=== PATIENT | male | born 1985 | race Hispanic/Latino ===

== ENCOUNTER 2022-08-07 17:42 | Inpatient (IN) | payer BC ==
[~2022-08-07] VITALS: Ht 180.3 cm; Wt 90.7 kg
[~2022-08-07 17:42] MED LIST: AUGMENTIN 500-1 EACH PO; CEFTIN500 MG PO; DITROPAN XL5 MG PO; GLIMEPIRIDE2 MG PO; GLIMEPIRIDE4 MG PO; GLYBURIDE5 MG PO; KETOROLAC TROME10 MG PO; METFORMIN HCL500 MG PO; METRONIDAZOLE500 MG PO; NORCO 7.5-3251 EACH PO; OXYBUTYNIN CHLOR5 MG PO; TYLENOL # 31 EA PO; VIMOVO PO
[2022-08-07] MEDS ORDERED: SODIUM CHLORIDE 0.9% 1000ML 1,000 ML ONE (18:19)
[2022-08-07] MEDS ORDERED: ACETAMINOPHEN 325 MG TAB ONE (18:19)
[2022-08-07] MEDS ORDERED: ONDANSETRON HCL INJ 2MG/ML 2ML 2 MG/ML VIAL ONE (18:19)
[2022-08-07] MEDS ORDERED: FAMOTIDINE 20 MG/2 ML VIAL IV ONE (18:20)
[2022-08-07] MEDS ORDERED: KETOROLAC TROMETHAMINE 30 MG/ML VIAL ONE (18:20)
[2022-08-07] MEDS ORDERED: FAMOTIDINE 20 MG/2 ML VIAL IV STA (18:26)
[2022-08-07] MEDS ORDERED: ONDANSETRON HCL INJ 2MG/ML 2ML 2 MG/ML VIAL IV STA ×2 (18:26→20:20)
[2022-08-07] MEDS ORDERED: KETOROLAC TROMETHAMINE 30 MG/ML VIAL IV STA (18:26)
[2022-08-07] MEDS ORDERED: SODIUM CHLORIDE 0.9% 1000ML 1,000 ML IV ONE (18:30)
[2022-08-07] MEDS ORDERED: ACETAMINOPHEN 325 MG TAB PO ONE (18:30)
[2022-08-07] MEDS ORDERED: SODIUM CHLORIDE 0.9% 1000ML 1,000 ML IV SCH (19:15)
[2022-08-07] MEDS ORDERED: LIDOCAINE HCL 1% LOCAL INJ 20 ML VIAL ONE (20:15)
[2022-08-07] MEDS ORDERED: CEFTRIAXONE 2 GM in SODIUM CHLORIDE 0.9% 100 ML IV ONE (20:30)
[2022-08-07] MEDS ORDERED: Morphine 4mg INJECTION 4 MG/ML INJ IV ONE (20:30)
[2022-08-07] MEDS ORDERED: CEFTRIAXONE 1 GM VIAL ONE (20:35)
[2022-08-07] MEDS ORDERED: SODIUM CHLORIDE 0.9% 100 ML ONE (20:35)
[2022-08-07] MEDS ORDERED: Morphine 4mg INJECTION 4 MG/ML INJ ONE (20:38)
[2022-08-07] MEDS ORDERED: Vancomycin IV 1 GM in SODIUM CHLORIDE 0.9% 250ML 250 ML IV ONE (22:45)
[2022-08-07] MEDS ORDERED: DEXTROSE 50% SYRINGE 50 ML IV PRN (23:00)
[2022-08-08] VITALS (10 sets, daily range): BP systolic 120–131; BP diastolic 74–83
[2022-08-08] MEDS: SODIUM CHLORIDE 0.9% 1000ML 1,000 ML IV SCH ×3 (01:59→16:49)
[2022-08-08] MEDS ORDERED: Vancomycin IV 1 GM in SODIUM CHLORIDE 0.9% 250ML 250 ML IV ONE (02:15)
[2022-08-08] MEDS ORDERED: TRULICITY0.75 MG/0. (02:38)
[2022-08-08] MEDS: ONDANSETRON HCL INJ 2MG/ML 2ML 2 MG/ML VIAL IV PRN ×3 (02:51→21:31)
[2022-08-08] MEDS: Morphine 4mg INJECTION 4 MG/ML INJ IV PRN ×3 (02:51→21:31)
[2022-08-08 03:17] LABS: CLARITY,URINE CLEAR (CLEAR); COLOR,URINE YELLOW (YELLOW); KETONES,URINE TRACE (NEGATIVE); LEUKOCYTE ESTERASE ,URINE NEGATIVE (NEGATIVE); NITRITE,URINE NEGATIVE (NEGATIVE); PROTEIN,URINE DIPSTICK >=300 (NEGATIVE); URINE UROBILINOGEN 0.2 mg/dL (0.2 - 1)
[2022-08-08 03:19] LABS: AMORPHOUS SEDIMENT,URINE FEW (FEW); BACTERIA,URINE FEW /HPF; EPITHELIAL CELLS,URINE RARE /LPF; RBC,URINE 0-5 /HPF (0-5); WBC,URINE (MAN) 0-5 /HPF (0-5)
[2022-08-08] MEDS: INSULIN LISPRO 100 UNIT/1 ML 3ML VIAL SQ SCH ×4 (07:30→21:00)
[2022-08-08] MEDS: CEFTRIAXONE 2 GM in SODIUM CHLORIDE 0.9% 100 ML IV SCH ×2 (08:15→21:30)
[2022-08-08] MEDS ORDERED: CEFTRIAXONE 2 GM in SODIUM CHLORIDE 0.9% 100 ML IV SCH (09:00)
[2022-08-08 10:02] LABS: BASOPHILS # (AUTO) 0.1 (0.0-0.1); BASOPHILS % 0.8 % (0.0-1.0); EOSINOPHILS # (AUTO) 0.2 (0.0-0.4); EOSINOPHILS % 3.5 % (0.0-6.0); HEMATOCRIT 35.1 % (38.2-49.6); HEMOGLOBIN 11.7 g/dL (14.0-18.0); LYMPHOCYTES # (AUTO) 1.8 (1.0-3.2); LYMPHOCYTES % 30.3 % (18.0-39.1); MEAN CORPUSCULAR HEMOGLOBIN 28.6 pg (28-32); MEAN CORPUSCULAR HGB CONC 33.3 g/dL (31-35); MEAN CORPUSCULAR VOLUME 85.8 fL (81-99); MONOCYTES # (AUTO) 0.8 (0.2-0.8); MONOCYTES % 12.4 % (4.4-11.3); NEUTROPHILS # (AUTO) 3.2 (2.1-6.9); NEUTROPHILS % 52.7 % (38.7-80.0); PLATELET COUNT 247 x10e3/uL (140-360); RED BLOOD COUNT 4.09 x10e6/uL (4.3-5.7); RED CELL DISTRIBUTION WIDTH 12.2 % (11.7-14.4)
[2022-08-08 10:44] LABS: ALBUMIN 3.2 g/dL (3.5-5.0); ALBUMIN/GLOBULIN RATIO 0.8 (0.8-2.0); ANION GAP 9.7 mmol/L (8-16); CALCIUM 8.3 mg/dL (8.4-10.2); CREATININE, SERUM 1.02 mg/dL (0.72-1.25); POTASSIUM 3.7 mmol/L (3.5-5.1)
[2022-08-08] MEDS ORDERED: DOCUSATE SODIUM 100 MG CAP PO PRN (15:00)
[2022-08-08 15:09] LABS: CHOL/HDL RATIO 5.7 (3.9-4.7)
[2022-08-08] MEDS ORDERED: Vancomycin IV 1 GM in SODIUM CHLORIDE 0.9% 250ML 250 ML IV SCH (17:45)
[2022-08-08] MEDS ORDERED: ACYCLOVIR SODIUM INJ 1,000 MG in SODIUM CHLORIDE 0.9% 250ML 250 ML IV SCH (18:00)
[2022-08-08] MEDS ORDERED: GADOBENATE DIMEGLUMINE 1 ML IV ONE (19:43)
[2022-08-08 19:54] LABS: INR 1.03; PROTHROMBIN TIME 13.7 seconds (11.9-14.5)
[2022-08-09] VITALS (9 sets, daily range): BP systolic 112–122; BP diastolic 70–82
[2022-08-09] MEDS: SODIUM CHLORIDE 0.9% 1000ML 1,000 ML IV SCH ×2 (04:37→15:25)
[2022-08-09] MEDS: INSULIN LISPRO 100 UNIT/1 ML 3ML VIAL SQ SCH ×4 (07:30→20:52)
[2022-08-09 07:43] LABS: BASOPHILS % 0.5 % (0.0-1.0); EOSINOPHILS # (AUTO) 0.2 (0.0-0.4); EOSINOPHILS % 2.7 % (0.0-6.0); HEMATOCRIT 35.5 % (38.2-49.6); HEMOGLOBIN 11.9 g/dL (14.0-18.0); LYMPHOCYTES # (AUTO) 2.7 (1.0-3.2); LYMPHOCYTES % 33.8 % (18.0-39.1); MEAN CORPUSCULAR HEMOGLOBIN 28.3 pg (28-32); MEAN CORPUSCULAR HGB CONC 33.5 g/dL (31-35); MEAN CORPUSCULAR VOLUME 84.3 fL (81-99); MONOCYTES # (AUTO) 0.7 (0.2-0.8); MONOCYTES % 9.4 % (4.4-11.3); NEUTROPHILS # (AUTO) 4.2 (2.1-6.9); NEUTROPHILS % 53.3 % (38.7-80.0); PLATELET COUNT 266 x10e3/uL (140-360); RED BLOOD COUNT 4.21 x10e6/uL (4.3-5.7)
[2022-08-09 08:11] LABS: ANION GAP 14.6 mmol/L (8-16); CALCIUM 8.7 mg/dL (8.4-10.2); CREATININE, SERUM 0.86 mg/dL (0.72-1.25); POTASSIUM 3.6 mmol/L (3.5-5.1)
[2022-08-09] MEDS: MULTIVITAMINS/MINERALS TAB PO SCH (08:14)
[2022-08-09] MEDS ORDERED: LIDOCAINE 1% 10 ML MULTIDOSE VIAL IJ ONE (08:14)
[2022-08-09] MEDS: CEFTRIAXONE 2 GM in SODIUM CHLORIDE 0.9% 100 ML IV SCH ×2 (08:14→20:44)
[2022-08-09] MEDS: Morphine 4mg INJECTION 4 MG/ML INJ IV PRN ×3 (08:15→20:45)
[2022-08-09] MEDS: ONDANSETRON HCL INJ 2MG/ML 2ML 2 MG/ML VIAL IV PRN ×3 (08:15→20:44)
[2022-08-09 09:13] LABS: HIV 1&2 AB SCREEN ***REACTIVE*** (NONREACTIVE)
[2022-08-09 12:45] LABS: APPEARANCE,CSF CLEAR (CLEAR); COLOR,CSF COLORLESS (COLORLESS); TUBE NUMBER 3
[2022-08-09 13:27] LABS: WHITE BLOOD CELL,CSF 596 cells/uL (0-5)
[2022-08-09 14:03] LABS: LYMPHOCYTES,CSF 77 % (40-80); MONOCYTES,CSF 21 %; NEUTROPHILS,CSF 2 % (0-6)
[2022-08-09 16:19] LABS: EOSINOPHILS % (MANUAL) 1 % (0-7); LYMPHOCYTES % (MANUAL) 32 % (19-48); MONOCYTES % (MANUAL) 11 % (3.4-9.0); NEUTROPHILS % (MANUAL) 55 % (40-74)
[2022-08-09 16:20] LABS: PLATELET ESTIMATE ADEQUATE; PLATELET MORPHOLOGY COMMENT NORMAL; RBC MORPHOLOGY COMMENT NORMAL
[2022-08-10] VITALS (8 sets, daily range): BP systolic 118–125; BP diastolic 70–89
[2022-08-10] MEDS: SODIUM CHLORIDE 0.9% 1000ML 1,000 ML IV SCH ×3 (04:08→21:59)
[2022-08-10 06:37] LABS: BASOPHILS # (AUTO) 0.1 (0.0-0.1); BASOPHILS % 0.7 % (0.0-1.0); EOSINOPHILS # (AUTO) 0.3 (0.0-0.4); EOSINOPHILS % 3.6 % (0.0-6.0); HEMATOCRIT 34.7 % (38.2-49.6); HEMOGLOBIN 11.9 g/dL (14.0-18.0); LYMPHOCYTES # (AUTO) 2.9 (1.0-3.2); LYMPHOCYTES % 33.1 % (18.0-39.1); MEAN CORPUSCULAR HEMOGLOBIN 28.7 pg (28-32); MEAN CORPUSCULAR HGB CONC 34.3 g/dL (31-35); MEAN CORPUSCULAR VOLUME 83.6 fL (81-99); MONOCYTES # (AUTO) 0.8 (0.2-0.8); MONOCYTES % 8.5 % (4.4-11.3); NEUTROPHILS # (AUTO) 4.8 (2.1-6.9); NEUTROPHILS % 53.9 % (38.7-80.0); PLATELET COUNT 271 x10e3/uL (140-360); RED BLOOD COUNT 4.15 x10e6/uL (4.3-5.7); RED CELL DISTRIBUTION WIDTH 12.1 % (11.7-14.4)
[2022-08-10 07:01] LABS: ANION GAP 13.1 mmol/L (8-16); CALCIUM 9.1 mg/dL (8.4-10.2); CREATININE, SERUM 0.91 mg/dL (0.72-1.25); POTASSIUM 4.1 mmol/L (3.5-5.1)
[2022-08-10 07:31] LABS: EOSINOPHILS % (MANUAL) 4 % (0-7); LYMPHOCYTES % (MANUAL) 34 % (19-48); MONOCYTES % (MANUAL) 6 % (3.4-9.0); NEUTROPHILS % (MANUAL) 56 % (40-74)
[2022-08-10 07:32] LABS: PLATELET ESTIMATE ADEQUATE; PLATELET MORPHOLOGY COMMENT NORMAL; RBC MORPHOLOGY COMMENT NORMAL
[2022-08-10] MEDS: INSULIN LISPRO 100 UNIT/1 ML 3ML VIAL SQ SCH ×5 (08:00→21:26)
[2022-08-10] MEDS: CEFTRIAXONE 2 GM in SODIUM CHLORIDE 0.9% 100 ML IV SCH ×2 (09:52→21:16)
[2022-08-10] MEDS: MULTIVITAMINS/MINERALS TAB PO SCH (09:52)
[2022-08-10] MEDS: ONDANSETRON HCL INJ 2MG/ML 2ML 2 MG/ML VIAL IV PRN (14:04)
[2022-08-10] MEDS: Morphine 4mg INJECTION 4 MG/ML INJ IV PRN ×2 (14:04→21:59)
[2022-08-11] VITALS: BP 118/73
[2022-08-11 05:06] VITALS: BP 113/74
[2022-08-11] MEDS: SODIUM CHLORIDE 0.9% 1000ML 1,000 ML IV SCH (06:49)
[2022-08-11] MEDS: INSULIN LISPRO 100 UNIT/1 ML 3ML VIAL SQ SCH (07:30)
[2022-08-11 08:20] VITALS: BP 120/87
[2022-08-11] MEDS ORDERED: TYLENOL325 MG PO (08:54)
[2022-08-11] MEDS ORDERED: DOXYCYCLINE HY100 MG PO (08:54)
[2022-08-11] MEDS: MULTIVITAMINS/MINERALS TAB PO SCH (09:28)
[2022-08-11] MEDS: CEFTRIAXONE 2 GM in SODIUM CHLORIDE 0.9% 100 ML IV SCH (09:29)
[2022-08-11 09:40] VITALS: BP 120/87
[2022-08-11 11:52] VITALS: BP 130/83
[2022-08-11 12:10] LABS: IGG/ALB RATIO CSF 0.26 (0.00-0.25)
[2022-08-11 12:11] LABS: CSF/SERUM ALBUMIN INDEX 15 (0-8)
[2022-08-11] MEDS ORDERED: ONDANSETRON HCL 4 MG ORAL DISINTEGRATING TAB PO PRN (12:45)
== END 2022-08-11 12:29 | disposition home or self-care (01) | DRG 76 ==
LOC: FSED 17:54 → ERHOLD 22:28 → MED/SURG2 08-08 01:34
PROVIDERS: ADMIT Internal Medicine; ATTEND Internal Medicine
PROC: 009U3ZX Drainage of Spinal Canal, Percutaneous Approach, Diagnostic (ICD-10-PCS; principal; 2022-08-09)
PROC: B01B1ZZ Fluoroscopy of Spinal Cord using Low Osmolar Contrast (ICD-10-PCS; 2022-08-09)
DX: A87.9 Viral meningitis, unspecified (principal); E86.0 Dehydration; E11.42 Type 2 diabetes mellitus with diabetic polyneuropathy; Z20.822 Contact with and (suspected) exposure to COVID-19; Z87.891 Personal history of nicotine dependence; Z79.84 Long term (current) use of oral hypoglycemic drugs
CPT/HCPCS: 36415; 62328; 70450; 70553; 74470; 80048; 80053; 80061; 81001; 81003; 82040; 82784; 82948; 83036; 83518; 83605; 83916; 84146; 84157; 85025; 85610; 86039; 86592; 86689; 86789; 87040; 87070; 87205; 87390; 87400; 87529; 87535; 87899; 89051; 95819; 96361; 99252; 99284; G0433; G0435; J0696; J1885; J2001; J2270; J2405; J3370; J7030; J7050

== ENCOUNTER 2023-10-18 08:55 | Inpatient (IN) | payer SELFPAY ==
[~2023-10-18] VITALS: Ht 177.8 cm; Wt 94.6 kg
[~2023-10-18 08:55] MED LIST changes: +DOXYCYCLINE HY100 MG PO; +TRULICITY0.75 MG/0.; +TYLENOL325 MG PO
[2023-10-18] MEDS ORDERED: METRONIDAZOLE 500MG/NS 100ML 100 ML IV ONE (10:27)
[2023-10-18] MEDS ORDERED: SODIUM CHLORIDE 0.9% 100 ML ONE (10:27)
[2023-10-18] MEDS ORDERED: Vancomycin IV 1 GM VIAL ONE ×2 (10:28→10:32)
[2023-10-18] MEDS ORDERED: PIPERACILLIN/TAZOBACTAM 3.375 GM VIAL ONE (10:28)
[2023-10-18] MEDS: METRONIDAZOLE 500MG/NS 100ML 100 ML IV SCH (11:02)
[2023-10-18] MEDS: KETOROLAC TROMETHAMINE 30 MG/ML VIAL IV STA (11:19)
[2023-10-18] MEDS ORDERED: IOPAMIDOL 370 MG/ML 100 ML INFUS..BTL INJ ONE (11:19)
[2023-10-18] MEDS: Vancomycin IV 2 GM in SODIUM CHLORIDE 0.9% 500ML 500 ML IV ONE (11:30)
[2023-10-18] MEDS ORDERED: SODIUM CHLORIDE 0.9% 500ML 500 ML ONE (11:35)
[2023-10-18] MEDS ORDERED: SODIUM CHLORIDE 0.9% 1000ML 0 ML ONE (12:53)
[2023-10-18] MEDS: SODIUM CHLORIDE 0.9% 1000ML 1,000 ML IV SCH ×2 (12:55→20:32)
[2023-10-18] MEDS ORDERED: SODIUM CHLORIDE 0.9% 1000ML 1,000 ML ONE (12:57)
[2023-10-18] MEDS ORDERED: SODIUM CHLORIDE FLUSH 10 ML SYR INJ PRN (13:00)
[2023-10-18] MEDS ORDERED: DEXTROSE 50% SYRINGE 50 ML IV PRN (13:15)
[2023-10-18] MEDS: Morphine 4mg INJECTION 4 MG/ML INJ IV PRN (15:13)
[2023-10-18] MEDS: ONDANSETRON HCL INJ 2MG/ML 2ML 2 MG/ML VIAL IV PRN (15:13)
[2023-10-18 15:17] VITALS: BP 128/85; O2SAT 99
[2023-10-18 15:22] VITALS: BP 128/85; O2SAT 99
[2023-10-18 15:36] VITALS: BP 117/83; PULSE 74; RESP 20; TEMP 97.6; O2SAT 100
[2023-10-18] MEDS: INSULIN LISPRO 100 UNIT/1 ML 3ML VIAL SQ SCH (16:30)
[2023-10-18] MEDS ORDERED: FAMOTIDINE 20 MG TAB PO PRN (18:00)
[2023-10-18] MEDS ORDERED: ONDANSETRON HCL 4 MG ORAL DISINTEGRATING TAB PO PRN (18:00)
[2023-10-18] MEDS ORDERED: HYDRALAZINE HCL 20 MG/ML VIAL IV PRN (18:00)
[2023-10-18] MEDS ORDERED: MELATONIN 5 MG TABLET PO PRN (18:00)
[2023-10-18 20:00] VITALS: BP 122/86; PULSE 78; RESP 18; TEMP 97.6; O2SAT 99
[2023-10-18 21:00] VITALS: BP 122/86; PULSE 78; RESP 20; TEMP 97.6; O2SAT 99
[2023-10-19] VITALS: BP 126/62; PULSE 80; RESP 18; TEMP 98; O2SAT 99
[2023-10-19 06:01] LABS: BASOPHILS # (AUTO) 0.1 (0.0-0.1); BASOPHILS % 0.4 % (0.0-1.0); EOSINOPHILS # (AUTO) 0.4 (0.0-0.4); EOSINOPHILS % 3.1 % (0.0-6.0); HEMATOCRIT 32.8 % (38.2-49.6); LYMPHOCYTES # (AUTO) 2.6 (1.0-3.2); LYMPHOCYTES % 21.8 % (18.0-39.1); MEAN CORPUSCULAR HEMOGLOBIN 28.6 pg (28-32); MEAN CORPUSCULAR HGB CONC 33.5 g/dL (31-35); MEAN CORPUSCULAR VOLUME 85.4 fL (81-99); MONOCYTES # (AUTO) 0.8 (0.2-0.8); MONOCYTES % 6.9 % (4.4-11.3); NEUTROPHILS # (AUTO) 8.1 (2.1-6.9); NEUTROPHILS % 67.5 % (38.7-80.0); PLATELET COUNT 226 x10e3/uL (140-360); RED BLOOD COUNT 3.84 x10e6/uL (4.3-5.7); RED CELL DISTRIBUTION WIDTH 12.1 % (11.7-14.4)
[2023-10-19 06:26] LABS: ALBUMIN/GLOBULIN RATIO 0.7 (0.8-2.0); ANION GAP 12.7 mmol/L (8-16); BILIRUBIN,TOTAL 0.4 mg/dL (0.2-1.2); CALCIUM 8.5 mg/dL (8.4-10.2); CREATININE, SERUM 0.95 mg/dL (0.72-1.25); POTASSIUM 3.7 mmol/L (3.5-5.1); TOTAL PROTEIN 7.2 g/dL (6.5-8.1)
[2023-10-19 08:50] VITALS: BP 130/81; PULSE 84; RESP 17; TEMP 98; O2SAT 97
[2023-10-19 09:33] VITALS: BP 130/81; PULSE 84; RESP 17; TEMP 98; O2SAT 97
[2023-10-19 12:51] LABS: CHOL/HDL RATIO 5.1 (3.9-4.7)
[2023-10-19] MEDS ORDERED: LIDOCAINE HCL 2% LOCAL INJ 5 ML SDV VIAL INJ ONE (13:17)
[2023-10-19] MEDS ORDERED: ONDANSETRON HCL INJ 2MG/ML 2ML 2 MG/ML VIAL ONE (13:17)
[2023-10-19] MEDS ORDERED: ACETAMINOPHEN 1000 MG/100 ML IV ONE (13:17)
[2023-10-19] MEDS ORDERED: PROPOFOL IV EMULSION 10 MG/ML 20 ML VIAL ONE (13:17)
[2023-10-19] MEDS ORDERED: KETOROLAC TROMETHAMINE 30 MG/ML VIAL ONE (13:17)
[2023-10-19] MEDS ORDERED: PHENYLEPHRINE HCL 1% 10 MG/ML VIAL ONE (13:17)
[2023-10-19] MEDS ORDERED: DEXMEDETOMIDINE HCL 200 MCG/2 ML VIAL ONE (13:17)
[2023-10-19] MEDS ORDERED: SEVOFLURANE INHAL SOLN 250 ML PEN BTL ONE (13:17)
[2023-10-19] MEDS ORDERED: FAMOTIDINE 20 MG/2 ML VIAL IV ONE (13:17)
[2023-10-19] MEDS ORDERED: KETOROLAC TROMETHAMINE 30 MG/ML VIAL IV PRN (13:45)
[2023-10-19] MEDS ORDERED: FENTANYL CITRATE/PF 100MCG/2 ML INJ ONE (13:50)
[2023-10-19] MEDS ORDERED: MIDAZOLAM HCL 2 MG/2 ML VIAL ONE (13:50)
[2023-10-19 20:00] VITALS: BP 116/88; PULSE 88; RESP 17; TEMP 97.5; O2SAT 99
[2023-10-20] VITALS: BP 106/68; PULSE 85; RESP 17; TEMP 97.6; O2SAT 100
[2023-10-20 04:00] VITALS: BP 119/83; PULSE 86; RESP 17; TEMP 97.5; O2SAT 97
[2023-10-20] MEDS: HYDROCODONE/APAP 7.5MG-325MG 1 EA TAB PO PRN (04:08)
[2023-10-20 06:14] LABS: BASOPHILS # (AUTO) 0.1 (0.0-0.1); BASOPHILS % 0.6 % (0.0-1.0); EOSINOPHILS # (AUTO) 0.3 (0.0-0.4); EOSINOPHILS % 3.1 % (0.0-6.0); HEMATOCRIT 29.7 % (38.2-49.6); HEMOGLOBIN 9.7 g/dL (14.0-18.0); LYMPHOCYTES # (AUTO) 2.8 (1.0-3.2); MEAN CORPUSCULAR HEMOGLOBIN 28.3 pg (28-32); MEAN CORPUSCULAR HGB CONC 32.7 g/dL (31-35); MEAN CORPUSCULAR VOLUME 86.6 fL (81-99); MONOCYTES # (AUTO) 0.7 (0.2-0.8); MONOCYTES % 8.1 % (4.4-11.3); NEUTROPHILS # (AUTO) 4.9 (2.1-6.9); NEUTROPHILS % 55.9 % (38.7-80.0); PLATELET COUNT 231 x10e3/uL (140-360); RED BLOOD COUNT 3.43 x10e6/uL (4.3-5.7); WHITE BLOOD COUNT 8.69 x10e3/uL (4.8-10.8)
[2023-10-20 06:51] LABS: ALBUMIN 2.8 g/dL (3.5-5.0); ALBUMIN/GLOBULIN RATIO 0.7 (0.8-2.0); ANION GAP 10.8 mmol/L (8-16); BILIRUBIN,TOTAL 0.4 mg/dL (0.2-1.2); CALCIUM 8.1 mg/dL (8.4-10.2); POTASSIUM 3.8 mmol/L (3.5-5.1); TOTAL PROTEIN 6.7 g/dL (6.5-8.1)
[2023-10-20 09:08] VITALS: BP 123/87; PULSE 91; RESP 18; TEMP 98.3; O2SAT 100
[2023-10-20 12:12] VITALS: BP 126/83; PULSE 83; RESP 17; TEMP 97.9; O2SAT 99
[2023-10-20] MEDS ORDERED: ONDANSETRON HCL 4 MG ORAL DISINTEGRATING TAB PO PRN (13:00)
[2023-10-20 15:41] VITALS: BP 118/80; PULSE 85; RESP 17; TEMP 98; O2SAT 100
[2023-10-20] MEDS ORDERED: METFORMIN HCL500 MG PO (20:52)
[2023-10-20] MEDS ORDERED: LEVOFLOXACIN250 MG PO (20:52)
[2023-10-20] MEDS ORDERED: HYDROCODON-ACE1 EA12 PO (20:52)
[2023-10-20] MEDS ORDERED: LIPITOR20 MG PO (20:55)
[2023-10-20 20:58] VITALS: BP 125/83; PULSE 88; RESP 18; TEMP 98.1; O2SAT 98
== END 2023-10-20 21:35 | disposition home or self-care (01) | DRG 572 ==
LOC: FSED 09:03 → ERHOLD 13:03 → MED/SURG2 14:55
PROVIDERS: ADMIT Family Medicine Adult Medicine; ATTEND Family Medicine Adult Medicine
PROC: 0JB90ZZ Excision of Buttock Subcutaneous Tissue and Fascia, Open Approach (ICD-10-PCS; 2023-10-19)
PROC: 0JB70ZZ Excision of Back Subcutaneous Tissue and Fascia, Open Approach (ICD-10-PCS; principal; 2023-10-19 12:45)
DX: L05.01 Pilonidal cyst with abscess (principal); E11.65 Type 2 diabetes mellitus with hyperglycemia; Z79.84 Long term (current) use of oral hypoglycemic drugs; R59.0 Localized enlarged lymph nodes; D64.9 Anemia, unspecified; K57.30 Diverticulosis of large intestine without perforation or abscess without bleeding; E78.5 Hyperlipidemia, unspecified; F17.290 Nicotine dependence, other tobacco product, uncomplicated; Z71.6 Tobacco abuse counseling; Z11.52 Encounter for screening for COVID-19; Z79.899 Other long term (current) drug therapy
CPT/HCPCS: 36415; 72193; 80053; 80061; 81003; 82948; 83036; 83605; 85025; 87040; 87071; 87075; 87205; 93005; 99284; J1885; J2001; J2250; J2270; J2371; J2405; J2543; J7030; J7040; J7050; Q9967